=== PATIENT | female | born 1985 | race Caucasian/White ===

== ENCOUNTER → 2021-11-26 | Outpatient (CLI) | payer BC ==
[~2021-11-26] MED LIST: BACTRIM DS TAB1 EACH PO; FLOMAX0.4 MG PO; LOSARTAN-HCTZ1 EAC1 PO; NORCO 5-325 TA1 EACH PO
== END ==
LOC: LAB 12:51
DX: E87.6 Hypokalemia (principal); A80.30 Acute paralytic poliomyelitis, unspecified
CPT/HCPCS: 36415; 84132

== ENCOUNTER → 2022-01-25 | Outpatient (CLI) | payer BC | LOC: US 15:30 | DX: M54.2 Cervicalgia (principal) | CPT/HCPCS: 93880 ==